=== PATIENT | female | born 1990 | race Caucasian/White ===

== ENCOUNTER → 2021-08-10 | Outpatient (CLI) | payer OTHER ==
--- NOTE | 2021-08-10 10:37 | RAD ---
XR FINGER(S)_LEFT 2+VIEWS_RT History: Dislocated fourth finger. Comparison: None. Technique: AP right hand. AP and lateral views of the fourth finger. Findings: Osseous mineralization is normal. No fracture or dislocaton. There is a tiny calcific density at the radial aspect of the proximal phalangeal head and a small cortical defect in the radial base of the m iddle phalanx likely sequela of collateral avulsion injury. Mild soft tissue swelling of the proximal interphalangeal joint. Impression: 1. Normal alignment at the right ring finger. 2. Suspected sequela of collateral or capsular avulsion at the radial aspect of the fourth finger pr oximal interphalangeal joint. Electronically signed by: Sandeep Aguiar MD (08/10/2021 10:35 AM) [id number]
== END ==
LOC: RAD 09:54
PROVIDERS: ATTEND Nurse Practitioner Family
DX: M79.89 Other specified soft tissue disorders (principal); M25.542 Pain in joints of left hand
CPT/HCPCS: 73140